=== PATIENT | female | born 1990 | race African-American/Black ===

== ENCOUNTER 2017-02-05 01:04 | Emergency (ER) | payer MEDICARE ==
[~2017-02-05] VITALS: Ht 152.4 cm; Wt 50.0 kg
[~2017-02-05 01:04] MED LIST: ACYCLOVIR800 MG PO; CEPHALEXIN500 M1 PO; DOXYCYCLINE 10100 MG PO; LORTAB 5/500 501 TAB PO; PHENERGAN 25 TA25 MG PO
[2017-02-05 01:09] VITALS: BP 129/69; TEMP 97.9
[2017-02-05] MEDS ORDERED: ULTRAM 50MG TAB50 MG PO (02:20)
[2017-02-05 02:42] VITALS: PULSE 86
== END 2017-02-05 02:42 | disposition home or self-care (01) ==
LOC: COL.ER 01:04
DX: S16.1XXA Strain of muscle, fascia and tendon at neck level, initial encounter (principal); S06.0X9A Concussion with loss of consciousness of unspecified duration, initial encounter; V49.50XA Passenger injured in collision with unspecified motor vehicles in traffic accident, initial encounter; Y92.414 Local residential or business street as the place of occurrence of the external cause; R40.2412 Glasgow coma scale score 13-15, at arrival to emergency department